=== PATIENT | female | born 1980 | race Caucasian/White ===

== ENCOUNTER 2017-08-16 06:24 | Outpatient (CLI) | payer OTHER ==
[~2017-08-16 06:24] MED LIST: FLONASE16 GM NS; ZITHROMAX TRI-500 MG PO; ZYRTEC10 MG PO
== END 2017-08-16 06:32 | disposition home or self-care (01) ==
LOC: LAB 06:24
DX: Z00.00 Encounter for general adult medical examination without abnormal findings (principal); I10 Essential (primary) hypertension; E03.8 Other specified hypothyroidism; E78.2 Mixed hyperlipidemia; N39.0 Urinary tract infection, site not specified; Z11.4 Encounter for screening for human immunodeficiency virus [HIV]; E55.9 Vitamin D deficiency, unspecified; Z21 Asymptomatic human immunodeficiency virus [HIV] infection status; R79.9 Abnormal finding of blood chemistry, unspecified; R79.89 Other specified abnormal findings of blood chemistry

== ENCOUNTER 2017-08-21 15:32 | Outpatient (CLI) | payer OTHER | END 2017-08-21 17:00 | disposition home or self-care (01) | LOC: MAMO-SONO 15:32 | DX: Z12.31 Encounter for screening mammogram for malignant neoplasm of breast (principal); N64.59 Other signs and symptoms in breast; N64.9 Disorder of breast, unspecified ==

== ENCOUNTER 2017-08-24 16:32 | Outpatient (CLI) | payer OTHER | END 2017-08-24 16:37 | disposition home or self-care (01) | LOC: LAB 16:32 | DX: Z00.00 Encounter for general adult medical examination without abnormal findings (principal) ==

== ENCOUNTER → 2017-08-24 | Outpatient (CLI) | payer OTHER ==
[~2017-08-24] VITALS: Ht 152.4 cm; Wt 59.0 kg
== END | disposition home or self-care (01) ==
LOC: PPHC 15:26
DX: N64.4 Mastodynia (principal)

== ENCOUNTER 2017-08-25 10:38 | Outpatient (CLI) | payer OTHER | END 2017-08-25 11:00 | disposition home or self-care (01) | LOC: SONOGRAMA 10:38 | DX: N64.89 Other specified disorders of breast (principal) ==

== ENCOUNTER → 2017-08-27 | Outpatient (CLI) | payer OTHER ==
[~2017-08-27] VITALS: Ht 152.4 cm; Wt 512.6 kg
== END | disposition home or self-care (01) ==
LOC: PPHC 14:25
DX: Z01.89 Encounter for other specified special examinations (principal)

== ENCOUNTER → 2017-09-03 | Outpatient (CLI) | payer OTHER | END | disposition home or self-care (01) | LOC: MAMO-SONO 15:57 | DX: N63.41 Unspecified lump in right breast, subareolar (principal) ==

== ENCOUNTER → 2018-02-07 | Outpatient (CLI) | payer OTHER | END | disposition home or self-care (01) | LOC: LAB 14:46 | DX: R07.0 Pain in throat (principal); R50.9 Fever, unspecified; R53.81 Other malaise; J11.1 Influenza due to unidentified influenza virus with other respiratory manifestations ==

== ENCOUNTER 2018-06-14 13:15 | Outpatient (CLI) | payer OTHER | END 2018-06-14 13:28 | disposition home or self-care (01) | LOC: SONOGRAMA 13:15 | DX: N60.11 Diffuse cystic mastopathy of right breast (principal); N60.12 Diffuse cystic mastopathy of left breast ==

== ENCOUNTER 2019-03-04 07:15 | Outpatient (CLI) | payer OTHER | END 2019-03-04 07:26 | disposition home or self-care (01) | LOC: LAB 07:15 | DX: E03.8 Other specified hypothyroidism (principal); Z00.00 Encounter for general adult medical examination without abnormal findings; I10 Essential (primary) hypertension; E78.00 Pure hypercholesterolemia, unspecified; N39.0 Urinary tract infection, site not specified; Z11.4 Encounter for screening for human immunodeficiency virus [HIV]; E55.9 Vitamin D deficiency, unspecified; Z21 Asymptomatic human immunodeficiency virus [HIV] infection status; R79.89 Other specified abnormal findings of blood chemistry ==

== ENCOUNTER → 2019-09-17 14:07 | Outpatient (CLI) | payer OTHER | END | disposition home or self-care (01) | LOC: LAB 14:07 | DX: R10.2 Pelvic and perineal pain (principal); E78.49 Other hyperlipidemia; Z00.00 Encounter for general adult medical examination without abnormal findings; Z11.1 Encounter for screening for respiratory tuberculosis; K92.1 Melena; E55.9 Vitamin D deficiency, unspecified ==

== ENCOUNTER 2019-09-18 14:00 | Outpatient (CLI) | payer OTHER | END 2019-09-18 14:09 | disposition home or self-care (01) | LOC: MAMO-SONO 14:00 | DX: Z12.31 Encounter for screening mammogram for malignant neoplasm of breast (principal); Z87.898 Personal history of other specified conditions; N64.4 Mastodynia ==

== ENCOUNTER 2020-02-13 06:24 | Outpatient (CLI) | payer OTHER | END 2020-02-13 06:29 | disposition home or self-care (01) | LOC: LAB 06:24 | PROVIDERS: ATTEND General Practice | DX: J11.1 Influenza due to unidentified influenza virus with other respiratory manifestations (principal); R53.1 Weakness; R53.81 Other malaise; D50.8 Other iron deficiency anemias; Z11.59 Encounter for screening for other viral diseases ==

== ENCOUNTER 2020-04-22 16:30 | Outpatient (CLI) | payer OTHER | END 2020-04-22 18:00 | disposition home or self-care (01) | LOC: PPH VACUNA 16:30 | DX: Z23 Encounter for immunization (principal) ==

== ENCOUNTER → 2020-06-29 14:18 | Outpatient (CLI) | payer OTHER | END | disposition home or self-care (01) | LOC: LAB 14:18 | PROVIDERS: ATTEND Anesthesiology | DX: Z03.818 Encounter for observation for suspected exposure to other biological agents ruled out (principal) ==

== ENCOUNTER 2020-08-31 06:40 | Day surgery (SDC) | payer OTHER | END 2020-08-31 09:40 | disposition home or self-care (01) | LOC: AMB-ENDOS 06:40 | PROVIDERS: ATTEND Surgery | DX: K62.89 Other specified diseases of anus and rectum (principal); K64.8 Other hemorrhoids; Z20.828 Contact with and (suspected) exposure to other viral communicable diseases ==

== ENCOUNTER 2020-09-08 16:45 | Outpatient (CLI) | payer OTHER | END 2020-09-08 18:00 | disposition home or self-care (01) | LOC: LAB 16:45 | PROVIDERS: ATTEND General Practice | DX: R05 Cough (principal); A53.9 Syphilis, unspecified ==

== ENCOUNTER → 2020-12-09 06:14 | Outpatient (CLI) | payer OTHER ==
[~2020-12-09 06:14] MED LIST changes: +KETO10TA2 PO; +NORFLEX100MG PO
== END | disposition home or self-care (01) ==
LOC: LAB 06:14
PROVIDERS: ATTEND Obstetrics & Gynecology
DX: Z00.00 Encounter for general adult medical examination without abnormal findings (principal); I10 Essential (primary) hypertension; E03.8 Other specified hypothyroidism; E78.00 Pure hypercholesterolemia, unspecified; N39.0 Urinary tract infection, site not specified; Z11.4 Encounter for screening for human immunodeficiency virus [HIV]; Z12.11 Encounter for screening for malignant neoplasm of colon; E55.9 Vitamin D deficiency, unspecified; Z21 Asymptomatic human immunodeficiency virus [HIV] infection status; R79.89 Other specified abnormal findings of blood chemistry

== ENCOUNTER 2020-12-20 14:27 | Outpatient (CLI) | payer OTHER | END 2020-12-20 14:37 | disposition home or self-care (01) | LOC: RAD 14:27 | PROVIDERS: ATTEND Physical Medicine & Rehabilitation | DX: M54.2 Cervicalgia (principal); M54.5 Low back pain; M54.6 Pain in thoracic spine ==

== ENCOUNTER 2021-01-27 14:19 | Outpatient (CLI) | payer OTHER | END 2021-01-27 14:28 | disposition home or self-care (01) | LOC: MAMO-SONO 14:19 | PROVIDERS: ATTEND Obstetrics & Gynecology | DX: Z12.31 Encounter for screening mammogram for malignant neoplasm of breast (principal); N94.0 Mittelschmerz; R10.2 Pelvic and perineal pain; N94.89 Other specified conditions associated with female genital organs and menstrual cycle ==

== ENCOUNTER 2021-02-15 10:25 | Emergency (ER) | payer OTHER ==
[~2021-02-15] VITALS: Ht 152.4 cm; Wt 56.7 kg
[2021-02-15] MEDS ORDERED: HORIZANT300 MG PO (16:01)
[2021-02-15] MEDS ORDERED: MEDROLPACK PO (16:01)
[2021-02-15] MEDS ORDERED: VALACYCLOVIR1000 MG PO (16:01)
== END 2021-02-15 16:19 | disposition home or self-care (01) ==
LOC: ER 10:25
DX: B02.9 Zoster without complications (principal)

== ENCOUNTER 2021-02-23 14:34 | Outpatient (CLI) | payer OTHER ==
[~2021-02-23 14:34] MED LIST changes: +HORIZANT300 MG PO; +MEDROLPACK PO; +VALACYCLOVIR1000 MG PO
== END 2021-02-23 14:39 | disposition home or self-care (01) ==
LOC: LAB 14:34
PROVIDERS: ATTEND Specialist
DX: N61.1 Abscess of the breast and nipple (principal)

== ENCOUNTER 2021-02-25 09:28 | Emergency (ER) | payer OTHER ==
[~2021-02-25] VITALS: Ht 152.4 cm; Wt 56.7 kg
== END 2021-02-25 13:43 | disposition home or self-care (01) ==
LOC: ER 09:28
DX: B34.9 Viral infection, unspecified (principal)

== ENCOUNTER → 2021-07-28 14:07 | Outpatient (CLI) | payer OTHER | END | disposition home or self-care (01) | LOC: LAB 14:07 | PROVIDERS: ATTEND Anesthesiology | DX: R53.82 Chronic fatigue, unspecified (principal) ==

== ENCOUNTER 2022-04-11 08:00 | Outpatient (CLI) | payer OTHER | END 2022-04-11 08:05 | disposition home or self-care (01) | LOC: PPH VACUNA 08:00 | PROVIDERS: ATTEND Emergency Medicine Pediatric Emergency Medicine | DX: Z23 Encounter for immunization (principal) ==

== ENCOUNTER 2022-07-12 13:53 | Outpatient (CLI) | payer OTHER | END 2022-07-12 13:54 | disposition home or self-care (01) | LOC: MAMO-SONO 13:53 | PROVIDERS: ATTEND Surgery | DX: N60.11 Diffuse cystic mastopathy of right breast (principal); N60.12 Diffuse cystic mastopathy of left breast; Z80.3 Family history of malignant neoplasm of breast ==

== ENCOUNTER 2022-10-30 13:54 | Outpatient (CLI) | payer OTHER | END 2022-10-30 14:12 | disposition home or self-care (01) | LOC: SONOGRAMA 13:54 | PROVIDERS: ATTEND Obstetrics & Gynecology | DX: N94.0 Mittelschmerz (principal); R10.2 Pelvic and perineal pain; N94.89 Other specified conditions associated with female genital organs and menstrual cycle ==

== ENCOUNTER → 2022-12-14 | Outpatient (CLI) | payer OTHER | END | disposition home or self-care (01) | LOC: MRI 07:09 | PROVIDERS: ATTEND Obstetrics & Gynecology | DX: E22.1 Hyperprolactinemia (principal) | CPT/HCPCS: 70552 ==

== ENCOUNTER 2023-02-02 06:16 | Outpatient (CLI) | payer OTHER | END 2023-02-02 06:17 | disposition home or self-care (01) | LOC: LAB 06:16 | PROVIDERS: ATTEND Anesthesiology | DX: E22.1 Hyperprolactinemia (principal); E05.80 Other thyrotoxicosis without thyrotoxic crisis or storm ==